=== PATIENT | male | born 1985 | race Caucasian/White ===

== ENCOUNTER 2018-07-25 16:45 | Emergency (ER) | payer BC, SELFPAY ==
[2018-07-25 16:47] VITALS: BP 146/94; PULSE 77; RESP 17; TEMP 36.6; O2SAT 99; BMI 26.9
--- NOTE | 2018-07-25 16:55 | RAD_ITS ---
STUDY: X-RAY - RIGHT ANKLE REASON FOR EXAM: Male, 32 years old. Trauma TECHNIQUE: 3 view(s) of the ankle. COMPARISON: None. FINDINGS: Normal visualized distal tibia and fibula. Normal medial and lateral malleoli. Normal tibiotalar articulation and ankle mortise. Normal visualized talus and calcaneus. The visualized subtalar, talonavicular, calcaneocuboid and tarsal articulations are normal. There is soft tissue swelling over the lateral malleolus. RAD/Ankle min 3 Views IMPRESSION: There is no evidence of fracture, dislocation, or significant degenerative disease. There is soft tissue swelling over the lateral malleolus. Electronically Signed: Jose Mares MD at 17:17 EST , Service support ,
--- NOTE | 2018-07-25 16:55 | ED.VISSUMM ---
- ER Visit Summary Date of Service: 07/25/18 Chief Complaint: Right ankle injury History of Present Illness: The patient is a 32 M presents to the emergency department with right ankle injury. Patient states he was walking out of his garage last night. He states it was icy and when he stepped down, he inverted his right ankle. He did not strike his head. Denies loss of consciousness. States area has swollen today and has had a difficult time bearing weight. He is otherwise healthy and takes no daily medications. Physical Examination: Exam is relatively unremarkable. The patient has some pain over the lateral malleolus and in the heel. His pulses are normal. Tapia testing is negative. There is no pain at the proximal fibula. There is no pain at the head of the fifth metatarsal. Test Results: [] Emergency Department Course and Treatment: The patient presents with right ankle injury. I did obtain plain films. There is no evidence of acute fracture. His ankle drawer testing is negative. I do feel this is likely secondary to ligamentous sprain. Patient was started on anti-inflammatories. He declined crutches. He is placed in an Aircast. Patient will be discharged home. Treatment Plan: [] Disposition: Discharge Impression: Right ankle sprain This note was generated with [employer] dictation software. It may contain incorrect words, spelling, and punctuation that were not noted in review of the chart prior to signing ED Disposition - Plan for ED Patient: Chief Complaint: Lower Extremity Injury Instructions: ED Sprain Ankle W X Ray Prescriptions: Naproxen [Naprosyn] 500 mg PO BID PRN #20 tab Referrals: Areli Lagos MD [Primary Care Provider] -
[2018-07-25 17:35] VITALS: BP 140/76; PULSE 80; RESP 17; O2SAT 99
--- OUTSIDE RECORDS SUMMARY | 2018-09-27 12:05 | XMS RPT_ITS ---
:1985 Author Organization OH[facility] Care Team Providers Name Role Phone CORADOCHRISTIE Bañuelos (LANDSCAPE ACCOUNT MANAGER) Attending Unavailable ARELI THOMPSON Attending Unavailable Aki Verduzco Attending Unavailable Areli Thompson Primary Care Unavailable PROBLEMS PROBLEMS No Problem Records FoundPROCEDURES PROCEDURES No Procedure Records FoundRESULTS RESULTS EMERGENCY DEPARTMENT Observed: 07/25/2018 Status: F Source: OPP SUMMARY 6:49 PM [facility] REPOSITORY [facility] Medical Records Department [address] [place] [address] Emergency Department Summary 07/25/18 1655 MR#: [id number] Acct: [id number] Name: ROXY ENCARNACION Rep #: [id number] : 1985 32 From: Aki Verduzco MD PCP: Areli Thompson MD Status: DEP ER - ER Visit Summary Date of Service: 07/25/18 Chief Complaint: Right ankle injury History of Present Illness: The patient is a 32 M presents to the emergency department with right ankle injury. Patient states he was walking out of his garage last night. He states it was icy and when he stepped down, he inverted his right ankle. He did not strike his head. Denies loss of consciousness. States area has swollen today and has had a difficult time bearing weight. He is otherwise healthy and takes no daily medications. Physical Examination: Exam is relatively unremarkable. The patient has some pain over the lateral malleolus and in the heel. His pulses are normal. Tapia testing is negative. There is no pain at the proximal fibula. There is no pain at the head of the fifth metatarsal. Test Results: [] Emergency Department Course and Treatment: The patient presents with right ankle injury. I did obtain plain films. There is no evidence of acute fracture. His ankle drawer testing is negative. I do feel this is likely secondary to ligamentous sprain. Patient was started on anti-inflammatories. He declined crutches. He is placed in an Aircast. Patient will be discharged home. Treatment Plan: [] Disposition: Discharge Impression: Right ankle sprain This note was generated with Vizimax dictation software. It may contain incorrect words, spelling, and punctuation that were not noted in review of the chart prior to signing ED Disposition - Plan for ED Patient: Chief Complaint: Lower Extremity Injury Instructions: ED Sprain Ankle W X Ray Prescriptions: Naproxen [Naprosyn] 500 mg PO BID PRN #20 tab Referrals: Areli Thompson MD [Primary Care Provider] - What to do if you have Problems For any increased pain, shortness of breath, bleeding, nausea or vomiting, chest pain, or any unexpected problems, contact your Primary Care Provider. Call [facility] ([phone]) or report to the closest Emergency Room. Call 911 if necessary. 07/25/18 5732 <Electronically signed by Aki Verduzco MD> Date Aki Verduzco MD Cosigner Signature (If Indicated): Date CC: Areli Thompson MD ANKLE MIN 3 VIEWS Observed: 07/25/2018 Status: F Source: PANFILO 4:55 PM [facility] REPOSITORY [facility] Imaging Services [address] [place] [address] Ankle min 3 Views MR#: [id number] Acct: [id number] Name: ROXY ENCARNACION Rep #: [id number] : 1985 M 32 From: Jose Mares MD PCP: Areli Thompson MD Status: REG ER Study: Ankle min 3 Views Date of Exam: 07/25/18 Exam# [id number] Ordering Dr: Aki Verduzco MD STUDY: X-RAY - RIGHT ANKLE REASON FOR EXAM: Male, 32 years old. Trauma TECHNIQUE: 3 view(s) of the ankle. COMPARISON: None. FINDINGS: Normal visualized distal tibia and fibula. Normal medial and lateral malleoli. Normal tibiotalar articulation and ankle mortise. Normal visualized talus and calcaneus. The visualized subtalar, talonavicular, calcaneocuboid and tarsal articulations are normal. There is soft tissue swelling over the lateral malleolus. RAD/Ankle min 3 Views IMPRESSION: There is no evidence of fracture, dislocation, or significant degenerative disease. There is soft tissue swelling over the lateral malleolus. Electronically Signed: Jose Mares MD at 17:17 EST , Service support , CC: Areli Thompson MD; Aki Verduzco MD Bond Trader: Signed PROGRESS Observed: 05/25/2018 Status: COMPLETED Source: [place] 4:32 PM [facility] REPOSITORY O ID: [id number] Author: Areli Thompson Service: (none) Author Type: Physician Type: Progress Notes Filed: 05/25/2018 5:18 PM Note Text: Reason for Visit Patient presents with: Established Patient: follow up-meds and refills needed Roxy Encarnacion is a 32 year old male who presents here today for Above Complaints. Health Maintenance There are no preventive care reminders to display for this patient. HPI Patient has been doing better with the ambien, would like a refill . Uses it 3 times a week whenever his shift is not good No problem-specific Assessment AND Plan notes found for this encounter. PAST MEDICAL HISTORY Diagnosis Date - Concussion - History of seizures as a child PAST SURGICAL HISTORY Procedure Laterality Date - NONE FAMILY HISTORY Problem Relation Age of Onset - Seizures Father - Breast Cancer Maternal Grandmother Social History Substance Use Topics - Smoking status: Former Smoker Packs/day: 0.50 Types: Cigarettes Quit date: 12/24/2006 - Smokeless tobacco: Former User Comment: for 1 1/2 years - Alcohol use Yes Comment: 2 times weekly Past medical history, appointments, medications, allergies reviewed. Pertinent Lab/Diagnostic Studies are reviewed and discussed today Current Outpatient Prescriptions: - zolpidem (AMBIEN) 5 mg tablet Review of Systems CONSTITUTIONAL: No fevers, chills night sweats, unintended weight loss CARDIOVASCULAR: No chest pain, dyspnea, palpitations, orthopnea, PND, ankle edema. PULM: No dyspnea, unexplained cough. GI: No dysphagia/odynophagia, problematic reflux, constipation, diarrhea, changes in stool habits, hematochezia, melena. : No new urinary complaints, including dysuria, gross hematuria or pyuria. NEURO: No new balance problems, peripheral weakness/paresthesias or numbness of concern. Physical Exam BP 124/74 (BP Site: Left Arm, BP Position: Sitting, BP Cuff Size: Regular Adult) Pulse 69 Resp 12 Ht 175.3 cm (5' 9) Wt 81.6 kg (180 lb) SpO2 97% BMI 26.58 kg/m? General appearance: Well appearing, alert, in no acute distress, well nourished. Skin: Skin color, texture, turgor normal, no suspicious rashes or lesions Head: Normocephalic, no masses, lesions, tenderness or abnormalities Eyes: Anicteric sclera. Pupils are equally round and reactive to light. Extraocular movements are intact. Lungs: Lungs clear to auscultation. No wheezing, rhonchi, rales Heart: RRR without murmur, gallop, or rubs. ASSESSMENT/PLAN: 1. Chronic insomnia - ICD9: 780.52, ICD10: F51.04 Refilled - ZOLPIDEM 5 MG TABLET ARELI THOMPSON MD CNOV Observed: 05/25/2018 Status: COMPLETED Source: [place] 4:00 PM [facility] REPOSITORY Office Visit (INTMWS) ROXY ENCARNACION ([id number]) 1985 M Date Time Provider Department 05/25/18 4:00 PM ARELI THOMPSON During your visit today, we recorded the following information about you: Pulse Respiration Blood pressure Weight 69/minute 12/minute 124/74 81.6 kg Height 1.753 m ARELI THOMPSON MD 05/25/2018 5:18 PM Signed Reason for Visit Patient presents with: Established Patient: follow up-meds and refills needed Roxy Encarnacion is a 32 year old male who presents here today for Above Complaints. Health Maintenance There are no preventive care reminders to display for this patient. HPI Patient has been doing better with the ambien, would like a refill . Uses it 3 times a week whenever his shift is not good No problem-specific Assessment AND Plan notes found for this encounter. PAST MEDICAL HISTORY Diagnosis Date - Concussion - History of seizures as a child PAST SURGICAL HISTORY Procedure Laterality Date - NONE FAMILY HISTORY Problem Relation Age of Onset - Seizures Father - Breast Cancer Maternal Grandmother Social History Substance Use Topics - Smoking status: Former Smoker Packs/day: 0.50 Types: Cigarettes Quit date: 12/24/2006 - Smokeless tobacco: Former User Comment: for 1 1/2 years - Alcohol use Yes Comment: 2 times weekly Past medical history, appointments, medications, allergies reviewed. Pertinent Lab/Diagnostic Studies are reviewed and discussed today Current Outpatient Prescriptions: - zolpidem (AMBIEN) 5 mg tablet Review of Systems CONSTITUTIONAL: No fevers, chills night sweats, unintended weight loss CARDIOVASCULAR: No chest pain, dyspnea, palpitations, orthopnea, PND, ankle edema. PULM: No dyspnea, unexplained cough. GI: No dysphagia/odynophagia, problematic reflux, constipation, diarrhea, changes in stool habits, hematochezia, melena. : No new urinary complaints, including dysuria, gross hematuria or pyuria. NEURO: No new balance problems, peripheral weakness/paresthesias or numbness of concern. Physical Exam BP 124/74 (BP Site: Left Arm, BP Position: Sitting, BP Cuff Size: Regular Adult) Pulse 69 Resp 12 Ht 175.3 cm (5' 9) Wt 81.6 kg (180 lb) SpO2 97% BMI 26.58 kg/m? General appearance: Well appearing, alert, in no acute distress, well nourished. Skin: Skin color, texture, turgor normal, no suspicious rashes or lesions Head: Normocephalic, no masses, lesions, tenderness or abnormalities Eyes: Anicteric sclera. Pupils are equally round and reactive to light. Extraocular movements are intact. Lungs: Lungs clear to auscultation. No wheezing, rhonchi, rales Heart: RRR without murmur, gallop, or rubs. ASSESSMENT/PLAN: 1. Chronic insomnia - ICD9: 780.52, ICD10: F51.04 Refilled - ZOLPIDEM 5 MG TABLET ARELI THOMPSON MD Referring Provider: SELF [200] Allergies As of Date: 05/25/2018 (No Known Allergies) Date Reviewed: 05/25/2018 Reviewed by: Gwen Rosado LPN - Fully Assessed Reason for Visit: Established Patient [175] Cmt: follow up-meds and refills needed Visit Diagnosis:Chronic insomnia [F51.04] Order(s):zolpidem (AMBIEN) 5 mg tabletTake 1 tablet by mouth at bedtime as needed for Sedation for up to 90 days.Disp: 30 tabletRfl: 1 Prescriptions as of 05/25/2018 Sig: ZOLPIDEM 5 MG TABLET Take 1 tablet by mouth at bed* Problem List As Of Date: 05/25/2018 (None) Prescriptions ordered this encounter Disp Refills Start End ZOLPIDEM 5 MG TABLET 30 t* 1 05/25/2018 08/23/2018 Class: Print RX Route: ORAL Sig: Take 1 tablet by mouth at bedtime as needed for Sedation for up to 90 days. Medications Discontinued During This Encounter zolpidem (AMBIEN) 5 mg tablet 30 t* 1 02/26/2018 05/25/2018 Class: Print RX Route: ORAL Sig: Take 1 tablet by mouth at bedtime as needed for Sedation for up to 90 days. Disc: Reason for discontinue is not on file. Encounter Status:Closed by ARELI THOMPSON MD on 05/25/18 PROGRESS Observed: 02/26/2018 Status: COMPLETED Source: [place] 10:19 AM [facility] REPOSITORY HNO ID: [id number] Author: Christie LoveRegistered Pharmacy Technician) Corado Service: (none) Author Type: Nurse Specialist Type: Progress Notes Filed: 02/26/2018 10:45 AM Note Text: OUTPATIENT VISIT DATE February 26, 2018 OUTPATIENT VISIT TYPE ESTABLISHED PRIMARY CARE PHYSICIAN: ARELI THOMPSON MD CHIEF COMPLAINT: Patient presents with: Sleep Problem History of Present Illness: Roxy Encarnacion is a 32 year old male who was last seen 2015 by ARELI THOMPSON MD He has been seen in the past for There is no problem list on file for this patient. Since the last visit, he states that he has chronic insomnia. Reports he has trouble falling asleep and staying asleep. Reports he has noted this for years. Currently notes that his mind is racing before going into work. 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 Reports occasionally not getting enough sleep and needing to call off work. Prefers to not take a medication such as trazodone currently. He has tried melatonin up to 10 mg [id number] which has helped somewhat. He has tried Benadryl 1-2 which has helped somewhat. No report of restless legs. No recent hospital or ED visits. No new medical problems or medications. Able to obtain medications. No problems with taking medications or note side effects. PAST MEDICAL HISTORY Diagnosis Date - Concussion - History of seizures as a child PAST SURGICAL HISTORY Procedure Laterality Date - NONE FAMILY HISTORY Problem Relation Age of Onset - Seizures Father - Breast Cancer Maternal Grandmother Social History Substance Use Topics - Smoking status: Former Smoker Packs/day: 0.50 Types: Cigarettes Quit date: 12/24/2006 - Smokeless tobacco: Former User Comment: for 1 1/2 years - Alcohol use Yes Comment: 2 times weekly ALLERGIES: ALLERGIES No Known Allergies MEDICATIONS No prescriptions on file. REVIEW OF SYSTEMS: GENERAL: Negative for: Weight loss or gain, Fever or Chills, Weakness and Sleep difficulties. Physical Examination: BP 132/82 Pulse 72 Resp 16 Wt 176 lb (79.8kg) BP w/Orthostatic Vitals Date and Time Orthostatic BP Orthostatic Pulse BP Pulse BP Position BP Site BP Cuff Size 02/26/18958 -- -- 132/82 72 Sitting Right Arm Regular Adult Peak Flow Date and Time PF Resp 02/26/18958 -- 16 General appearance: Well appearing, alert, in no acute distress, well-hydrated, well nourished. Skin: Skin color, texture, turgor normal, no suspicious rashes or lesions Neuro: Gait normal. Reflexes normal and symmetric. Sensation grossly intact. Reviewed chart, outside records, tests [facility] website checked and validated. All prescriptions have been APPROPRIATELY filled. No suspicious activity was identified. 02/26/2018 by Christie Corado APRN.LANDSCAPE ACCOUNT MANAGER I personally interviewed, confirmed and edited the above information if obtained by others. TESTING: Glucose (mg/dL) Date Value 04/30/2016 85 Potassium (mmol/L) Date Value 04/30/2016 4.4 Sodium (mmol/L) Date Value 04/30/2016 138 Chloride (mmol/L) Date Value 04/30/2016 99 CO2 (mmol/L) Date Value 04/30/2016 28 Creatinine (mg/dL) Date Value 04/30/2016 0.89 BUN (mg/dL) Date Value 04/30/2016 11 Anion Gap (mmol/L) Date Value 04/30/2016 11 Calcium (mg/dL) Date Value 04/30/2016 9.4 Glucose (mg/dL) Date Value 04/30/2016 85 Potassium (mmol/L) Date Value 04/30/2016 4.4 Sodium (mmol/L) Date Value 04/30/2016 138 Chloride (mmol/L) Date Value 04/30/2016 99 CO2 (mmol/L) Date Value 04/30/2016 28 Creatinine (mg/dL) Date Value 04/30/2016 0.89 BUN (mg/dL) Date Value 04/30/2016 11 Anion Gap (mmol/L) Date Value 04/30/2016 11 Calcium (mg/dL) Date Value 04/30/2016 9.4 No results found for: HB, HCT, WBC Cholesterol, Total (mg/dL) Date Value 04/30/2016 177 HDL Cholesterol (mg/dL) Date Value 04/30/2016 38 LDL Cholesterol (mg/dL) Date Value 04/30/2016 120 Triglyceride (mg/dL) Date Value 04/30/2016 95 No results found for: HBA1C Ejection Fraction: No results found IMPRESSION: Mr. Encarnacion is a 32 year old man presents with complaint of chronic insomnia. After my examination and review of data, I make the following recommendations. PLAN AND RECOMMENDATIONS: 1. Chronic insomnia - ICD9: 780.52, ICD10: F51.Radha Has tried iehi-kox-hnjgmii remedies such as melatonin and Benadryl Has tried lifestyle measures, however does look bright light prior to bedtime. Prefers to not try trazodone at this time. Reports previously took fluoxetine and it did not agree with him. - CONSULT TO SLEEP MEDICINE - ADULT - ZOLPIDEM 5 MG TABLET Advised to go to ER if develops chest pain, shortness of breath, or severe worsening of symptoms. Discussed risks, benefits, alternatives, and potential side effects of medications. Mr. Encarnacion expressed understanding and agreed with the plan. Christie Corado APRN.LANDSCAPE ACCOUNT MANAGER CNOV Observed: 02/26/2018 Status: COMPLETED Source: [place] 10:00 AM [facility] REPOSITORY Office Visit (INTMWS) ROXY ENCARNACION ([id number]) 1985 M Date Time Provider Department 02/26/18 10:00 AM CHRISTIE CORADO (ABI) INTNATALY During your visit today, we recorded the following information about you: Pulse Respiration Blood pressure Weight 72/minute 16/minute 132/82 79.8 kg Christie Corado APRN.CNS 02/26/2018 10:45 AM Signed OUTPATIENT VISIT DATE February 26, 2018 OUTPATIENT VISIT TYPE ESTABLISHED PRIMARY CARE PHYSICIAN: ARELI THOMPSON MD CHIEF COMPLAINT: Patient presents with: Sleep Problem History of Present Illness: Roxy Encarnacion is a 32 year old male who was last seen 2015 by ARELI THOMPSON MD He has been seen in the past for There is no problem list on file for this patient. Since the last visit, he states that he has chronic insomnia. Reports he has trouble falling asleep and staying asleep. Reports he has noted this for years. Currently notes that his mind is racing before going into work. 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 Reports occasionally not getting enough sleep and needing to call off work. Prefers to not take a medication such as trazodone currently. He has tried melatonin up to 10 mg rcem-ngf-njhtrqn which has helped somewhat. He has tried Benadryl 1-2 which has helped somewhat. No report of restless legs. No recent hospital or ED visits. No new medical problems or medications. Able to obtain medications. No problems with taking medications or note side effects. PAST MEDICAL HISTORY Diagnosis Date - Concussion - History of seizures as a child PAST SURGICAL HISTORY Procedure Laterality Date - NONE FAMILY HISTORY Problem Relation Age of Onset - Seizures Father - Breast Cancer Maternal Grandmother Social History Substance Use Topics - Smoking status: Former Smoker Packs/day: 0.50 Types: Cigarettes Quit date: 12/24/2006 - Smokeless tobacco: Former User Comment: for 1 1/2 years - Alcohol use Yes Comment: 2 times weekly ALLERGIES: ALLERGIES No Known Allergies MEDICATIONS No prescriptions on file. REVIEW OF SYSTEMS: GENERAL: Negative for: Weight loss or gain, Fever or Chills, Weakness and Sleep difficulties. Physical Examination: BP 132/82 Pulse 72 Resp 16 Wt 176 lb (79.8kg) BP w/Orthostatic Vitals Date and Time Orthostatic BP Orthostatic Pulse BP Pulse BP Position BP Site BP Cuff Size 02/26/18 0959 -- -- 132/82 72 Sitting Right Arm Regular Adult Peak Flow Date and Time PF Resp 02/26/18 0959 -- 16 General appearance: Well appearing, alert, in no acute distress, well-hydrated, well nourished. Skin: Skin color, texture, turgor normal, no suspicious rashes or lesions Neuro: Gait normal. Reflexes normal and symmetric. Sensation grossly intact. Reviewed chart, outside records, tests [facility] website checked and validated. All prescriptions have been APPROPRIATELY filled. No suspicious activity was identified. 02/26/2018 by Christie Corado APRN.LANDSCAPE ACCOUNT MANAGER I personally interviewed, confirmed and edited the above information if obtained by others. TESTING: Glucose (mg/dL) Date Value 04/30/2016 85 Potassium (mmol/L) Date Value 04/30/2016 4.4 Sodium (mmol/L) Date Value 04/30/2016 138 Chloride (mmol/L) Date Value 04/30/2016 99 CO2 (mmol/L) Date Value 04/30/2016 28 Creatinine (mg/dL) Date Value 04/30/2016 0.89 BUN (mg/dL) Date Value 04/30/2016 11 Anion Gap (mmol/L) Date Value 04/30/2016 11 Calcium (mg/dL) Date Value 04/30/2016 9.4 Glucose (mg/dL) Date Value 04/30/2016 85 Potassium (mmol/L) Date Value 04/30/2016 4.4 Sodium (mmol/L) Date Value 04/30/2016 138 Chloride (mmol/L) Date Value 04/30/2016 99 CO2 (mmol/L) Date Value 04/30/2016 28 Creatinine (mg/dL) Date Value 04/30/2016 0.89 BUN (mg/dL) Date Value 04/30/2016 11 Anion Gap (mmol/L) Date Value 04/30/2016 11 Calcium (mg/dL) Date Value 04/30/2016 9.4 No results found for: HB, HCT, WBC Cholesterol, Total (mg/dL) Date Value 04/30/2016 177 HDL Cholesterol (mg/dL) Date Value 04/30/2016 38 LDL Cholesterol (mg/dL) Date Value 04/30/2016 120 Triglyceride (mg/dL) Date Value 04/30/2016 95 No results found for: HBA1C Ejection Fraction: No results found IMPRESSION: Mr. Encarnacion is a 32 year old man presents with complaint of chronic insomnia. After my examination and review of data, I make the following recommendations. PLAN AND RECOMMENDATIONS: 1. Chronic insomnia - ICD9: 780.52, ICD10: F51.04 Has tried ldfw-igi-mpcfitl remedies such as melatonin and Benadryl Has tried lifestyle measures, however does look bright light prior to bedtime. Prefers to not try trazodone at this time. Reports previously took fluoxetine and it did not agree with him. - CONSULT TO SLEEP MEDICINE - ADULT - ZOLPIDEM 5 MG TABLET Advised to go to ER if develops chest pain, shortness of breath, or severe worsening of symptoms. Discussed risks, benefits, alternatives, and potential side effects of medications. Mr. Encarnacion expressed understanding and agreed with the plan. Christie Corado APRN.LANDSCAPE ACCOUNT MANAGER Christie Corado APRN.LANDSCAPE ACCOUNT MANAGER 02/26/2018 10:38 AM Signed Take one half to one ambien as needed for sleep Referring Provider: SELF [200] Allergies As of Date: 02/26/2018 (No Known Allergies) Date Reviewed: 02/26/2018 Reviewed by: Soledad Contreras LPN - Fully Assessed Reason for Visit: Sleep Problem [100] Primary Visit Diagnosis:Chronic insomnia [F51.04] Order(s):CONSULT TO SLEEP MEDICINE - ADULT [[id number]] Order #: [id number]: 1 zolpidem (AMBIEN) 5 mg tabletTake 1 tablet by mouth at bedtime as needed for Sedation for up to 90 days.Disp: 30 tabletRfl: 1 Prescriptions as of 02/26/2018 Sig: ZOLPIDEM 5 MG TABLET Take 1 tablet by mouth at bed* Problem List As Of Date: 02/26/2018 (None) Other instructions from your clinician: Take one half to one ambien as needed for sleep Prescriptions ordered this encounter Disp Refills Start End ZOLPIDEM 5 MG TABLET 30 t* 1 02/26/2018 05/27/2018 Class: Print RX Route: ORAL Sig: Take 1 tablet by mouth at bedtime as needed for Sedation for up to 90 days. Follow-up and Disposition History Recorded Encounter Status:Closed by CHRISTIE VERMA on 02/26/18 ALLERGIES ALLERGIES DATE TYPE / CODE NAME / CODE REACTION SEVERITY SOURCE 07/25/[address] [facility] Allergy/416 Allergies/C29305 Hospital 327126(SNOM 0388(RXNORM) Repository ED CT) Drug NO KNOWN [facility] Class/31233 ALLERGIES [facility] 1003(SNOMED Repository CT) ENCOUNTERS ENCOUNTERS ADMIT/DISCHARGE ACCOUNT ADMITTING ENCOUNTER LOCATION SOURCE NUMBER CLASS 07/25/2018/07/25/19 [id number] Emergency Homer Homer [address] [place] [address] ing:ED Repository 05/25/2018/05/26/20 [id number] Ambulatory [address] Repository 02/26/2018/03/01/20 [id number] Ambulatory [address] Repository PAYERS PAYERS ENCOUNTER GUARANTOR PAYER SUBSCRIBER SOURCE 07/25/2018 ROXY DUNHAM Primary JAYDA D Homer [id number] Insurance:ANTHEMPolic PHILLIPSDOB: [facility] [place]: [id number] [id number] Repository [address]Hpf: [address] Date:[id number] (HP) [address], [place] [address]NX: 07/25/2018 Secondary NOT GIVENUNK [employer] Insurance:SELF PAY [facility] Number: Effective Repository Date:2018-07-25
== END 2018-07-25 17:36 | disposition home or self-care (01) ==
PROVIDERS: Emergency Provider Emergency Medicine; Family Provider Internal Medicine; PCP Internal Medicine
DX: S93.401A Sprain of unspecified ligament of right ankle, initial encounter (principal); W00.0XXA Fall on same level due to ice and snow, initial encounter; Y93.01 Activity, walking, marching and hiking; Y92.015 Private garage of single-family (private) house as the place of occurrence of the external cause; Y99.9 Unspecified external cause status; Z79.899 Other long term (current) drug therapy
CPT/HCPCS: 73610; 99283

== ENCOUNTER 2020-09-15 11:36 | Emergency (ER) | payer BC, SELFPAY ==
[2020-09-15 11:37] VITALS: BP 161/106; PULSE 103; PULSE 116; RESP 17; RESP 20; TEMP 36.6; O2SAT 100; BMI 25.2
--- NOTE | 2020-09-15 11:37 | NURSING ---
NO OLD EKGS
--- NOTE | 2020-09-15 11:38 | NURSING ---
NO OLD EKGS
--- NOTE | 2020-09-15 11:55 | EKG12_ITS ---
Test Reason : CP Blood Pressure : / mmHG Vent. Rate : 082 BPM Atrial Rate : 082 BPM P-R Int : 144 ms QRS Dur : 094 ms QT Int : 350 ms P-R-T Axes : 038 037 -11 degrees QTc Int : 408 ms Normal sinus rhythm Nonspecific ST abnormality Abnormal ECG Confirmed by LILY CHURCHILL, TAI ([id number]), technical writer and editor CHANCE WALKER ([id number]) on 09/17/2020 10:37:04 A M Referred By: JENNA Confirmed By:ZULEYMA BAUTISTA MD
--- NOTE | 2020-09-15 11:55 | RAD_ITS ---
STUDY: X-RAY CHEST REASON FOR EXAM: Male, 34 years old. chest pain TECHNIQUE: Single AP portable view of the chest. COMPARISON: None. FINDINGS: The lungs are clear and expanded. There is no demonstrated pleural abnormality. Normal size heart. Normal mediastinum and clinton. Normal visualized pulmonary arteries. Normal visualized aortic arch and descending thoracic aorta. Normal visualized thoracic spine. Normal visualized ribs, clavicles, and shoulders. There is no demonstrated abnormality of the visualized soft tissue structures of the upper abdomen. RAD/Chest 1 View (Portable) IMPRESSION: Normal x-ray examination of the chest. Electronically Signed: Branden Desouza MD at 12:32 EST Tel , Service support ,
--- NOTE | 2020-09-15 11:56 | ED.VISSUMM ---
- ER Visit Summary Date of Service: 09/15/20 Chief Complaint: Chest pain History of Present Illness: The patient is a 34 M who presents with chest pain that began today. Patient states it was there when he woke up today. Patient states it is over the left chest area. Patient states it radiates to his left shoulder and neck. Patient describes the pain as dull. Patient states the pain is worse whenever he extends his head and neck. Patient states nothing seems to help with it. Patient states he tried Maalox with no improvement. Patient denies any nausea or vomiting. Patient denies any shortness of breath or diaphoresis. Patient denies any cough or fevers. Patient denies any palpitations or lightheadedness. Patient denies any cardiac or PE risk factors. Physical Examination: Vital signs are stable. Patient is afebrile. Patient is in no acute distress. Oral mucosa is pink and moist. Neck is supple. Trachea is midline. There is no JVD noted. Heart was regular rate and rhythm. Lungs are clear and equal bilaterally. Abdomen is soft. Bowel sounds are normal. There is no tenderness. There is no rebound or guarding noted. Skin is warm dry. Cranial nerves II through XII are intact. There are no focal motor or sensory deficits noted. Extremities are intact. There is no calf tenderness or edema. Test Results: EKG was obtained. On my interpretation, there is a normal sinus rhythm with a rate of 82. There are nonspecific ST-T wave changes in leads III and aVF. There are no prior EKGs available for comparison. CBC and basic metabolic profile were obtained and were within normal limits. Troponin was normal. D-dimer was normal. Portable 1 view chest x-ray was obtained. On my interpretation, lung stephens are clear. There is normal cardiac silhouette. Bony thorax is normal. There is no acute process noted. Radiologist also interpreted the x-ray and agrees. Emergency Department Course and Treatment: Patient was given aspirin here. Patient was advised of his results. Patient has a HEART score of 2. Patient was advised that this is low risk for acute cardiac event. Patient was instructed to follow-up with his primary care physician in 5 to 7 days. Patient understood and was agreeable with the plan. All questions were answered. Disposition: Discharge home Impression: 1. Chest pain This note was generated with [employer] software. It may contain incorrect words, spelling, and punctuation that were not noted in review of the chart prior to signing ED Disposition - Plan for ED Patient: Disposition: Home or Assisted Living Diagnosis: Chest pain of uncertain etiology Instructions: ED Chest Pain, Uncertain Cause Referrals: Areli Lagos MD [Primary Care Provider] - 5-7 Days
[2020-09-15] MEDS: Aspirin 81 MG TAB.CHEW 324 MG PO (12:13)
[2020-09-15 12:26] LABS: Anion Gap 6 (5-15); BUN 14 mg/dL (7-18); BUN/Creat Ratio 13.7 RATIO (10-20); Calcium,Total 10.2 mg/dL (8.5-10.1); Chloride 103 mmol/L (98-107); Creatinine, Serum 1.02 mg/dL (0.70-1.30); EST Glomerular Filtration Rate 89 mL/min (>60); Est Glom Filt Rate - Afr Amer 108 mL/min (>60); Estimated Creatinine Clearance 103.97 ml/min; Glucose 98 mg/dL (74-106); Potassium 3.7 mmol/L (3.5-5.1); Sodium Level 139 mmol/L (136-145)
[2020-09-15 12:30] LABS: Absolute Lymphocyte Count 3.31 X10^3/uL (0.83-4.51); Absolute Neutrophil Count 3.4 X10^3/uL (2.0-7.7); Basophil# 0.07 X10^3/uL; Basophil% 0.9 % (0-1); Eosinophil# 0.18 X10^3/uL; Eosinophils% 2.3 % (0-5); Hematocrit 50.7 % (40-54); Hemoglobin 16.5 g/dL (13.0-16.5); Lymphocyte # 3.31 X10^3/ul (4.0); Lymphocyte % 42.4 % (19-41); Mean Corp Hgb Conc 32.5 g/dL (32-36); Mean Corpuscular Volume 89.3 fL (80-94); Mean Platelet Vol. 9.7 fl (6.2-12.0); Monocyte# 0.78 X10^3/uL; NRBC Flagged by Analyzer 0 % (0-5); Neutrophil # 3.44 X10^3/uL (2.7-7.7); Neutrophil % 44.1 % (47-70); Platelet Count 328 K/mm3 (150-450); RBC Distribution Width CV 12.7 % (11.6-14.6); RBC Distribution Width SD 41.3 fl (35.1-43.9); Red Blood Count 5.68 M/mm3 (4.6-6.2); White Blood Count 7.8 K/mm3 (4.4-11.0)
[2020-09-15 12:36] VITALS: BP 148/91; PULSE 71; RESP 18; O2SAT 99
[2020-09-15 12:37] LABS: D-Dimer Quantitative (DVT/PE) <= 0.27 FEU/ug/m (0.27-0.49)
[2020-09-15 13:00] VITALS: BP 148/71; PULSE 63; RESP 18; O2SAT 99
[2020-09-15 13:26] VITALS: BP 148/61; PULSE 63; RESP 18; O2SAT 98
== END 2020-09-15 13:27 | disposition home or self-care (01) ==
PROVIDERS: Emergency Provider Emergency Medicine; PCP Internal Medicine
DX: R07.9 Chest pain, unspecified (principal); M54.2 Cervicalgia; Z79.899 Other long term (current) drug therapy
CPT/HCPCS: 71045; 80048; 84484; 85025; 85379; 93005; 99285; A4216